=== PATIENT | female | born 1985 | race Caucasian/White ===

== ENCOUNTER 2016-06-15 13:23 | Inpatient (IN) | payer BC ==
[2016-06-15 14:11] LABS: HEMOGLOBIN 12.4 gm/dl (12.3-15.3); RED BLOOD COUNT 4.42 M/UL (4.00-5.10); WHITE BLOOD COUNT 13.9 K/UL (4.5-11.0)
[2016-06-16 03:16] LABS: HEMOGLOBIN 10.1 gm/dl (12.3-15.3)
[2016-06-18] MEDS ORDERED: COLACE 100MG C100 MG PO (06:44)
== END 2016-06-17 20:05 | disposition home or self-care (01) | DRG 765 ==
LOC: GENOP 13:23 → OB 13:53
PROVIDERS: ADMIT Obstetrics & Gynecology
PROC: 10D00Z1 Extraction of Products of Conception, Low, Open Approach (ICD-10-PCS; principal; 2016-06-15 17:42)
DX: O76 Abnormality in fetal heart rate and rhythm complicating labor and delivery (principal); O99.42 Diseases of the circulatory system complicating childbirth; O41.1230 Chorioamnionitis, third trimester, not applicable or unspecified; O98.32 Other infections with a predominantly sexual mode of transmission complicating childbirth; O98.52 Other viral diseases complicating childbirth; O90.2 Hematoma of obstetric wound; Z3A.35 35 weeks gestation of pregnancy; Z37.0 Single live birth; R00.0 Tachycardia, unspecified; D72.829 Elevated white blood cell count, unspecified; A63.0 Anogenital (venereal) warts; Z82.49 Family history of ischemic heart disease and other diseases of the circulatory system; Z88.0 Allergy status to penicillin
CPT/HCPCS: 36415; 82800; 85014; 85018; 85025; 90715; C9113; J0690; J1580; J2270; J2590; J2765; J3010; J3430; J7050; J7070; J7120